=== PATIENT | male | born 2000 ===

== ENCOUNTER 2021-12-21 01:06 | Emergency (ER) | payer BC ==
[2021-12-21] MEDS ORDERED: Sodium Chloride 0.9% 1,000 ML IV ONE (01:07)
[2021-12-21] MEDS ORDERED: LORazepam 2 MG/ML SDV IVPUSH ONE (01:07)
[2021-12-21] MEDS ORDERED: Sodium Chloride 0.9% 10 ML Syringe FLUSH PRN (01:07)
[2021-12-21] MEDS ORDERED: Sodium Chloride 0.9% 2.5 ML Syringe FLUSH PRN (01:07)
[2021-12-21 01:50] LABS: BLOOD UREA NITROGEN,BUN 11 mg/dL (7.0-18.0); CARBON DIOXIDE,CO2 20.9 mmol/L (21.0-32.0); CHLORIDE,CL 97 mmol/L (98-107); GLUCOSE RANDOM 118 mg/dL (74-106); POTASSIUM,K 3.4 mmol/L (3.5-5.1); SODIUM,NA 137 mmol/L (136-148)
[2021-12-21] MEDS ORDERED: LORazepam 2 MG/ML SDV ONE (02:29)
== END 2021-12-21 05:33 | disposition home or self-care (01) ==
LOC: MW.ED 01:06
DX: I47.1 Supraventricular tachycardia (principal); R07.89 Other chest pain; F14.90 Cocaine use, unspecified, uncomplicated
CPT/HCPCS: 36415; 71045; 80053; 80307; 84443; 84484; 85025; 85379; 93005; 96374; 99285; J2060; J3490; J7030; 93010; 99283